=== PATIENT | female | born 1945 | race African-American/Black ===

== ENCOUNTER 2019-12-25 16:45 | Emergency (ER) | payer OTHER ==
[~2019-12-25] VITALS: Ht 175.3 cm; Wt 142.0 kg
[2019-12-25 18:09] LABS: BASOPHILS % 1.2 % (0.0-2.0); EOSINOPHILS % 2.8 % (0.0-5.0); HEMATOCRIT. 37.5 % (36.0-48.0); HEMOGLOBIN. 12.1 g/dL (12.0-16.0); LYMPHOCYTES % 17.5 % (20.0-50.0); MEAN CORPUSCULAR HEMOGLOBIN 27.1 pg (28.0-32.0); MEAN CORPUSCULAR VOLUME 83.8 fL (81.0-99.0); MEAN PLATELET VOLUME 10.4 fl (7.4-10.4); MONOCYTES % 10.6 % (2.0-8.0); NEUTROPHILS % 67.9 % (40.0-76.0); PLATELET 231 x1000/uL (130-400); RED BLOOD CELL COUNT 4.47 mill/uL (4.2-5.4); RED CELL DISTRIBUTION WIDTH 14.8 % (11.6-14.6)
[2019-12-25 18:18] LABS: CHLORIDE 106 mEq/L (98-107)
[2019-12-25] MEDS ORDERED: CARVEDILOL 6.25 MG TABLET PO ONE (23:00)
[2019-12-25] MEDS ORDERED: HYDRALAZINE HCL 10MG TABLET PEG ONE (23:00)
[2019-12-26 01:03] VITALS: BP 141/75
== END 2019-12-26 01:20 | disposition home or self-care (01) ==
LOC: ER 16:45
DX: S22.39XA Fracture of one rib, unspecified side, initial encounter for closed fracture (principal); R41.82 Altered mental status, unspecified; W06.XXXA Fall from bed, initial encounter; Y93.89 Activity, other specified; Y92.013 Bedroom of single-family (private) house as the place of occurrence of the external cause
CPT/HCPCS: 36415; 71045; 73502; 74176; 80053; 83880; 84484; 85025; 93005; 99285